=== PATIENT | male | born 1950 | race Caucasian/White ===

== ENCOUNTER → 2021-04-13 | Outpatient (CLI) | payer OTHER ==
[~2021-04-13] MED LIST: ADULT LOW DOSE81 MG PO; ALEVE220 MG PO; ASPIR 8181 MG PO; FISH OIL 1,0001 EAC8 PO; FISH OIL 1,001000 M3 PO; L-ARGININE500 MG PO; LIPITOR 20 MG T20 M1 PO; MOBIC15 MG PO; OMEPRAZOLE 20 M20 M1 PO; OMEPRAZOLE20 M2 PO; PERCOCET 5-3251 EACH PO; PERCOCET PO; XARELTO10 MG PO; ZETIA10 MG PO
== END ==
LOC: M.LAB 04-12 05:48
PROVIDERS: ATTEND Orthopaedic Surgery
DX: Z01.818 Encounter for other preprocedural examination (principal); Z01.812 Encounter for preprocedural laboratory examination; M19.011 Primary osteoarthritis, right shoulder

== ENCOUNTER → 2021-04-17 | Outpatient (CLI) | payer OTHER ==
[2021-04-17 12:55] LABS: HEMATOCRIT 43.4 % (42.0-52.0); HEMOGLOBIN 14.6 gm/dL (14.0-18.0); MCH 30.7 pg (26.0-34.0); MCHC 33.7 g/dL (28.0-37.0); MPV 6.6 fl. (7.2-11.1); RBC 4.77 mil/uL (4.50-6.00); RDW-CV 13.1 % (10.5-14.5); WBC 5.6 thou/uL (4.0-11.0)
[2021-04-17 12:59] LABS: URINE BILIRUBIN NEGATIVE (Negative); URINE BLOOD NEGATIVE (Negative); URINE CLARITY CLEAR; URINE COLOR YELLOW; URINE GLUCOSE-RANDOM NEGATIVE (Negative); URINE KETONES NEGATIVE (Negative); URINE LEUKOCYTES-REFLEX NEGATIVE (Negative); URINE NITRITE-REFLEX NEGATIVE (Negative); URINE PROTEIN NEGATIVE (Negative); URINE SPECIFIC GRAVITY <= 1.005 (1.005-1.030); URINE UROBILINOGEN 0.2 E.U./dl (0.2-1.0)
[2021-04-17 13:06] LABS: PROTIME 10.2 Seconds (9.20-11.50)
[2021-04-17 13:09] LABS: ALBUMIN 3.7 g/dL (3.4-5.0); CALCIUM 8.4 mg/dL (8.5-10.1); CREATININE 0.8 mg/dL (0.6-1.3); POTASSIUM 4.2 mmol/L (3.5-5.1); TOTAL BILIRUBIN 0.7 mg/dL (<0.1-1.0); TOTAL PROTEIN 6.9 g/dL (6.4-8.2)
--- NOTE | 2021-04-17 13:29 | EKG ---
[place] [address] ELECTROCARDIOGRAM REPORT Name: PAMELA PATIÑO Room: [facility]#: [id number] Admission: 04/17/21 Attend Phys: Andrea Grace, Discharge: Date of : 46 Date of Service: 04/17/[address] [facility] Report #: [id number] THIS REPORT FOR: //name// [facility] Test Date: 2021-04-17 Test Time: 13:00:38 Pat Name: PAMELA PATIÑO Department: Room: Gender: Stencil Printer: Debbie MCKEON RN : 1950 Requested By: Andrea Grace Order Number: [id number] Reading MD: Trav Colbert Measurements Intervals [place] Rate: 56 P: 63 LA: 169 QRS: 23 QRSD: 103 T: 109 QT: 423 QTc: 409 Interpretive Statements Sinus bradycardia RsR' in V1 Probable left atrial enlargement Probable lateral infarct, age indeterminate Baseline wander in lead(s) V6 Compared to ECG 10/11/2016 13:28:12 Myocardial infarct finding now present Ventricular premature complex(es) no longer present Electronically Signed On 04-17-2021 13:29:16 DIRECTOR OF [employer]ES by Trav Colbert [email or web address] <ELECTRONICALLY SIGNED> By: Trav Colbert MD, FACC 04/17/21 1329 1300 1300 Trav Colbert MD, FAC /EPI
== END ==
LOC: M.LAB 12:33
PROVIDERS: ATTEND Orthopaedic Surgery
DX: Z01.818 Encounter for other preprocedural examination (principal); Z01.812 Encounter for preprocedural laboratory examination; Z20.822 Contact with and (suspected) exposure to COVID-19; M19.011 Primary osteoarthritis, right shoulder

== ENCOUNTER 2021-04-18 07:13 | Observation (INO) | payer OTHER ==
[~2021-04-18] VITALS: Ht 188 cm; Wt 74.8 kg
--- NOTE | ~2021-04-18 | H ---
[facility] [address] [place] [address] HISTORY AND PHYSICAL Name: KAYLYNPAMELA Room: [address] [place]#: [id number] Admission: 04/18/21 Attend Phys: Andrea Grace II Discharge: 04/18/21 Date of : 46 Report #: [id number] THIS REPORT FOR: cc: [facility] - Clinic physician unknown [facility] - Clinic physician unknown [facility],Medical Records Staff ~ Please refer to the History and Physical performed in the physician's office. By: [id number] Records Staff BRYN /ELAINE
[~2021-04-18 07:13] MED LIST changes: -PERCOCET 5-3251 EACH PO
[2021-04-18 10:25] VITALS: BP 104/73
[2021-04-18] MEDS ORDERED: PERCOCET 5-3251 EACH PO (12:48)
[2021-04-18 13:23] VITALS: BP 104/73
--- NOTE | 2021-04-25 10:57 | OP ---
[address] [address] OPERATIVE REPORT Name: PAMELA PATIÑO Room: [address] [place]#: [id number] Admission: 04/18/21 Attend Phys: Andrea Grace II Discharge: 04/18/21 Date of : 46 Report #: [id number] THIS REPORT FOR: cc: [facility] - Clinic physician unknown [facility] - Clinic physician unknown Andrea Grace II DO ~ DATE OF SURGERY: 04/18/2021 PREOPERATIVE DIAGNOSIS: Right shoulder osteoarthritis. POSTOPERATIVE DIAGNOSIS: Right shoulder osteoarthritis. PROCEDURE: Right reverse total shoulder arthroplasty. SURGEON: Andrea Grace II, DO MEDICAL FIELD REPRESENTATIVE: ABHISHEK Bashir. ANESTHESIA: Per operative record. ESTIMATED BLOOD LOSS: 50 mL. ANTIBIOTICS: Per operative record. DRAINS: None. COMPLICATIONS: None. CONDITION: The patient stable to recovery room. DESCRIPTION OF PROCEDURE: The patient was taken to the operative suite, placed supine on the operating table, given appropriate anesthesia. The patient's right shoulder was placed in a modified beach chair position. All bony prominences were well-padded. Surgery began by an anterior incision over the deltopectoral region, the skin and subcutaneous tissues. Deltopectoral approach was then performed, taken careful hemostasis, and retraction of the deltoid laterally with the cephalic vein. The subscapularis was reflected off of the anterior aspect of the humerus. There was shown to be no evidence of rotator cuff remaining. The biceps tendon was also torn and no longer remaining. Starting hole was then performed utilizing the rongeur. The starting awl was then introduced in the proximal aspect of the humerus and reaming was undertaken up to a size 11. This was left in place and the proximal cut was performed with appropriate alignment to remove the head of the humerus in appropriate fashion. The broach was then utilized up to a size 11 and this was then left in place with appropriate version. The protective cover was then placed over the humerus and this was retracted posteriorly to assess the glenoid. [place] [address] OPERATIVE REPORT Name: KAYLYNPAMELA Room: [address] [place]#: [id number] Admission: 04/18/21 Attend Phys: Andrea Grace II Discharge: 04/18/21 Date of : 46 Report #: [id number] removed from the glenoid. Central guide pin was then placed in appropriate fashion. This was reamed in appropriate fashion to get punctate bleeding of the glenoid. Irrigation was then performed. The glenoid baseplate was then secured utilizing appropriate length screw and 2 superior and inferior screws. Trial glenosphere was then utilized and attention was turned back to the humerus. Trial humeral cup was then applied and the shoulder was reduced in appropriate fashion. This was increased in thickness to appropriate stability. After the appropriate stability has been determined utilizing the trials, the finals were then selected. The glenosphere was then malleted in position in appropriate fashion utilizing the eccentric glenosphere and the humerus stem was put together on the back table in a monoblock and then malleted down into the humerus in appropriate fashion. This was once again reduced and showed excellent stability of the shoulder and excellent range of motion of all range of motion. Final irrigation then performed. The subscap was reapproximated to the humerus in appropriate fashion. The deltopectoral interval was closed utilizing #1 Vicryl in running fashion. Skin was closed with 2-0 Vicryl and a running Monocryl. Dermabond and sterile dressing and a sling were applied. The patient transported to recovery in stable condition. Counts were correct. <ELECTRONICALLY SIGNED> By: Andrea Grace II, DO 04/25/21 1057 [id number] Grace II, DO /nt
== END 2021-04-18 14:15 | disposition home or self-care (01) ==
LOC: M.ORTHSURG 07:13 → M.TBA 08:55 → M.ORTHSURG 09:39 → M.TBA 14:15 → EDSTATUS 14:28 → M.ORTHSURG 15:13
PROVIDERS: ADMIT Orthopaedic Surgery; ATTEND Orthopaedic Surgery
DX: M19.011 Primary osteoarthritis, right shoulder (principal); Z88.0 Allergy status to penicillin; Z88.8 Allergy status to other drugs, medicaments and biological substances